=== PATIENT | female | born 1990 | race Caucasian/White ===

== ENCOUNTER 2017-02-12 17:09 | Emergency (ER) | payer OTHER ==
[~2017-02-12] VITALS: Ht 172.7 cm; Wt 59.4 kg
[2017-02-12 17:46] VITALS: BP 142/99
== END 2017-02-12 17:56 | disposition home or self-care (01) ==
LOC: ER 17:16
DX: F41.9 Anxiety disorder, unspecified (principal); F32.9 Major depressive disorder, single episode, unspecified; E03.9 Hypothyroidism, unspecified; H71.91 Unspecified cholesteatoma, right ear; F17.200 Nicotine dependence, unspecified, uncomplicated
CPT/HCPCS: A4606; Z7610